=== PATIENT | male | born 1950 | race Caucasian/White ===

== ENCOUNTER → 2018-04-24 | Outpatient (CLI) | payer MEDICARE, OTHER ==
[~2018-04-24] MED LIST: ASPI81CH; Calcium Magnes1 EAC1; Calcium Magnes1 EACH; ERGO400; LOSA25; TAMS.4ER PO
== END | disposition home or self-care (01) ==
LOC: LAB EV 12:13 → LAB SHORT 12:13
DX: N41.9 Inflammatory disease of prostate, unspecified (principal)
CPT/HCPCS: 87077; 87086; 87186

== ENCOUNTER 2018-10-21 14:26 | Emergency (ER) | payer MEDICARE, OTHER ==
[~2018-10-21] VITALS: Ht 182.9 cm; Wt 108.9 kg
[2018-10-21 15:05] LABS: BASOPHILS ABSOLUTE AUTO 0.02 K/mm3 (0.00-0.23); BASOPHILS PERCENT AUTO 0 % (0-2); EOSINOPHILS PERCENT AUTO 3 % (0-6); IMMATURE GRAN ABSOLUTE AUTO 0.04 K/mm3 (0.00-0.10); IMMATURE GRAN PERCENT AUTO 1 % (0-1); LYMPHOCYTES ABSOLUTE AUTO 0.65 K/mm3 (0.84-5.20); LYMPHOCYTES PERCENT AUTO 7 % (21-46); MONOCYTES ABSOLUTE AUTO 0.24 K/mm3 (0.16-1.47); MONOCYTES PERCENT AUTO 3 % (4-13); Mean Corpuscular HGB 31.6 pg (26.0-34.0); Mean Corpuscular HGB Conc 34.8 g/dL (31.5-36.5); Mean Corpuscular Volume 91 fL (80-100); Mean Platelet Volume 10.5 fL (9.1-12.4); NEUTROPHILS ABSOLUTE AUTO 7.54 K/mm3 (1.96-9.15); NEUTROPHILS PERCENT AUTO 86 % (41-73); Platelet Count 119 K/mm3 (150-400); RDW Coefficient Variation 12.3 % (11.7-14.2); RDW Standard Deviation 41.2 fL (35.1-46.3); Red Blood Cell Count 5.06 M/mm3 (4.30-5.90); White Blood Cell Count 8.79 K/mm3 (4.00-11.30)
[2018-10-21] MEDS ORDERED: CETI5 PO (15:16)
[2018-10-21] MEDS ORDERED: Fish Oil Conc1000 MG PO (15:16)
[2018-10-21] MEDS ORDERED: NITR100CA PO (15:17)
[2018-10-21] MEDS ORDERED: ASPI81CH PO (15:17)
[2018-10-21 15:18] LABS: International Normalized Ratio 1.19; Prothrombin Time Results 12.4 Sec (9.7-11.5)
[2018-10-21 15:23] LABS: Albumin, Blood 2.9 g/dL (3.4-5.0); Albumin/Globulin Ratio 0.8 (0.8-1.8); Bilirubin, Total 0.6 mg/dL (0.1-1.0); Bun/Creatinine Ratio 12.6 (12.0-20.0); Calcium, Blood 8.6 mg/dL (8.5-10.1); Creatinine, Blood 1.82 mg/dL (0.60-1.20); Globulin, Blood 3.7 g/dL (2.2-4.0); Potassium, Blood 3.9 mmol/L (3.5-5.5); Total Protein, Blood 6.6 g/dL (6.4-8.2)
[2018-10-21 15:48] LABS: Source, Urine Catheter
[2018-10-21 15:54] LABS: Bilirubin, Urine Neg (Neg); Blood, Urine 4+ (Neg); Glucose Qualitative, Urine Neg (Neg); Ketones, Urine Neg (Neg); Leukocyte Esterase, Urine 1+ (Neg); Nitrite, Urine Neg (Neg); Protein, Urine 2+ (Neg); Urobilinogen, Urine NORM (Normal)
[2018-10-21 16:08] LABS: Appearance, Urine Hazy (Clear); Color, Urine Yellow (P-Yellow)
[2018-10-21 16:17] LABS: Bacteria Mod /hpf; Mucus Light (0-Heavy); Squamous Epithelial Cells Mod /hpf (Few)
[2018-10-21] MEDS ORDERED: Cipro500 MG PO (16:37)
[2019-01-29] MEDS ORDERED: TAMS.4ER PO (08:42)
[2019-01-29] MEDS ORDERED: Aspirin EC81 MG PO (08:42)
[2019-01-29] MEDS ORDERED: LOSA25 PO (08:42)
== END 2018-10-21 17:42 | disposition home or self-care (01) ==
LOC: ER 14:26
PROVIDERS: Physician Assistant
DX: L27.1 Localized skin eruption due to drugs and medicaments taken internally (principal); T37.8X5A Adverse effect of other specified systemic anti-infectives and antiparasitics, initial encounter; N39.0 Urinary tract infection, site not specified; I12.9 Hypertensive chronic kidney disease with stage 1 through stage 4 chronic kidney disease, or unspecified chronic kidney disease; N18.3 Chronic kidney disease, stage 3 (moderate); L40.9 Psoriasis, unspecified
CPT/HCPCS: 36415; 71046; 80053; 81001; 83605; 85025; 85610; 85730; 87040; 87077; 87086; 87186; 93005; 93010; 96360; 99284-25; J7030

== ENCOUNTER 2019-02-01 06:37 | Day surgery (SDC) | payer MEDICARE, OTHER ==
[~2019-02-01] VITALS: Ht 182.9 cm; Wt 105.4 kg
[~2019-02-01 06:37] MED LIST changes: +ASPI81CH PO; +Aspirin EC81 MG PO; +CETI5 PO; +Cipro500 MG PO; +Fish Oil Conc1000 MG PO; +LOSA25 PO; +NITR100CA PO
== END 2019-02-01 09:29 | disposition home or self-care (01) ==
LOC: ORSCSDS 06:37
PROVIDERS: Internal Medicine Gastroenterology
PROC: 0DBN8ZX Excision of Sigmoid Colon, Via Natural or Artificial Opening Endoscopic, Diagnostic (ICD-10-PCS; principal; 2019-02-01 08:00)
PROC: 0DBL8ZX Excision of Transverse Colon, Via Natural or Artificial Opening Endoscopic, Diagnostic (ICD-10-PCS; principal; 2019-02-01 08:00)
PROC: 0DBK8ZX Excision of Ascending Colon, Via Natural or Artificial Opening Endoscopic, Diagnostic (ICD-10-PCS; principal; 2019-02-01 08:00)
DX: Z12.11 Encounter for screening for malignant neoplasm of colon (principal); K63.5 Polyp of colon; K57.30 Diverticulosis of large intestine without perforation or abscess without bleeding; K64.8 Other hemorrhoids; Z86.010 Personal history of colon polyps; N18.3 Chronic kidney disease, stage 3 (moderate); N40.0 Benign prostatic hyperplasia without lower urinary tract symptoms; E78.5 Hyperlipidemia, unspecified; Z79.899 Other long term (current) drug therapy
CPT/HCPCS: 88305; J0330; J0461; J2250; J2405; J2704; J7120

== ENCOUNTER 2020-02-19 11:08 | Day surgery (SDC) | payer MEDICARE ==
[~2020-02-19] VITALS: Ht 182.9 cm; Wt 109.0 kg
[2020-02-19] MEDS ORDERED: ATOR20 PO (11:37)
== END 2020-02-19 14:05 | disposition home or self-care (01) ==
LOC: ORSCSDS 11:08
PROVIDERS: Internal Medicine Gastroenterology
PROC: 0DJD8ZZ Inspection of Lower Intestinal Tract, Via Natural or Artificial Opening Endoscopic (ICD-10-PCS; principal; 2020-02-19 12:30)
DX: Z86.010 Personal history of colon polyps (principal); K57.30 Diverticulosis of large intestine without perforation or abscess without bleeding; K64.8 Other hemorrhoids; E78.5 Hyperlipidemia, unspecified; N18.30 Chronic kidney disease, stage 3 unspecified; K21.9 Gastro-esophageal reflux disease without esophagitis; Z79.899 Other long term (current) drug therapy; Z79.82 Long term (current) use of aspirin
CPT/HCPCS: J2250; J2704; J7120

== ENCOUNTER → 2021-12-11 | Outpatient (CLI) | payer OTHER | END | disposition home or self-care (01) | LOC: LAB 12:31 | DX: N39.0 Urinary tract infection, site not specified (principal) ==

== ENCOUNTER → 2022-01-06 | Outpatient (CLI) | payer OTHER ==
[~2022-01-06] MED LIST changes: +ATOR20 PO
[2022-01-06 11:01] LABS: Source, Urine Clean Catch
[2022-01-06 13:22] LABS: Appearance, Urine Hazy (Clear); Bilirubin, Urine Neg (Neg); Blood, Urine 4+ (Neg); Color, Urine Yellow (P-Yellow); Glucose Qualitative, Urine Neg (Neg); Ketones, Urine Neg (Neg); Leukocyte Esterase, Urine 3+ (Neg); Nitrite, Urine Neg (Neg); Protein, Urine 1+ (Neg); Urobilinogen, Urine NORM (Normal)
[2022-01-06 13:59] LABS: Bacteria Many /hpf; Squamous Epithelial Cells Few /hpf (Few); White Blood Cells, Urine 25-50 /hpf (0-5)
== END | disposition home or self-care (01) ==
LOC: LAB SHORT 10:58 → LAB 10:58
PROVIDERS: Urology
DX: N39.0 Urinary tract infection, site not specified (principal)
CPT/HCPCS: 81001; 87077; 87086; 87186

== ENCOUNTER → 2022-02-09 | Outpatient (CLI) | payer OTHER | END | disposition home or self-care (01) | LOC: LAB 11:42 → LAB SHORT 11:42 | DX: L82.1 Other seborrheic keratosis (principal) | CPT/HCPCS: 88305 ==

== ENCOUNTER → 2022-02-12 | Outpatient (CLI) | payer OTHER ==
[2022-02-12 16:17] LABS: Source, Urine Clean Catch
[2022-02-12 19:04] LABS: Appearance, Urine Cloudy (Clear); Bilirubin, Urine Neg (Neg); Blood, Urine 2+ (Neg); Color, Urine Amber (P-Yellow); Glucose Qualitative, Urine Neg (Neg); Ketones, Urine Neg (Neg); Leukocyte Esterase, Urine 3+ (Neg); Nitrite, Urine Neg (Neg); Protein, Urine 1+ (Neg); Specific Gravity, Urine 1.015 (1.003-1.022); Urobilinogen, Urine NORM (Normal)
[2022-02-12 19:12] LABS: Bacteria Many /hpf; Squamous Epithelial Cells Rare /hpf (Few)
== END | disposition home or self-care (01) ==
LOC: LAB SHORT 16:15 → LAB 16:15 → LAB FUT 02-12 16:15
PROVIDERS: Urology
DX: N39.0 Urinary tract infection, site not specified (principal)
CPT/HCPCS: 81001; 87077; 87086; 87186

== ENCOUNTER 2022-03-10 12:00 | Day surgery (SDC) | payer OTHER ==
[~2022-03-10] VITALS: Ht 185.4 cm; Wt 116.1 kg
== END 2022-03-10 15:16 | disposition home or self-care (01) ==
LOC: ORSCSDS 12:00
PROVIDERS: Internal Medicine Gastroenterology
PROC: 0DJD8ZZ Inspection of Lower Intestinal Tract, Via Natural or Artificial Opening Endoscopic (ICD-10-PCS; principal; 2022-03-10 13:15)
DX: K63.5 Polyp of colon (principal); K57.30 Diverticulosis of large intestine without perforation or abscess without bleeding; K64.8 Other hemorrhoids; I10 Essential (primary) hypertension; K21.9 Gastro-esophageal reflux disease without esophagitis; Z79.899 Other long term (current) drug therapy; Z79.82 Long term (current) use of aspirin
CPT/HCPCS: J0330; J0461; J2405; J2704; J7120; Q9968

== ENCOUNTER → 2022-09-24 | Outpatient (CLI) | payer OTHER ==
[2022-09-28 11:11] LABS: M-SPIKE, % Not Observed % (Not Observed); PROTEIN,TOTAL,URINE 11.2 mg/dL (Not Estab.)
== END | disposition home or self-care (01) ==
LOC: LAB SHORT 03:55 → LAB 03:55 → LAB FUT 09-21 13:15
PROVIDERS: Internal Medicine
DX: R79.89 Other specified abnormal findings of blood chemistry (principal)
CPT/HCPCS: 81050; 84156; 84166

== ENCOUNTER 2024-04-05 13:09 | Day surgery (SDC) | payer OTHER ==
[~2024-04-05 13:09] MED LIST changes: +Atropine Sulfate 0.1 MG/ML 10ML SYR ONE; +Glycopyrrolate 0.2 MG/ML 1MLVIAL ONE; +Lactated Ringer's 1,000 ML IV ONE; +Lidocaine 2% 5 ML SDV ONE; +Lidocaine HCl/Pf 1% 5 ML VIAL ONE; +Methylene Blue 1% 100 MG/10 ML VIAL ONE; +Ondansetron HCl 2 MG / ML 2ML Vial ONE; +ePHEDrine Sulfate 50 MG/ML 1ML Injection ONE; +propofoL 50 ML IV ONE
[2024-04-05] MEDS ORDERED: METHENAM HIP (13:47)
[2024-04-05] MEDS ORDERED: Lactated Ringer's 1,000 ML IV ONE (14:06)
[2024-04-05] MEDS ORDERED: propofoL 50 ML IV ONE ×2 (14:16)
[2024-04-05] MEDS ORDERED: Midazolam HCL 1 MG/ML 5MLVIAL ONE (14:36)
[2024-04-05 15:48] VITALS: BP 130/77
== END 2024-04-05 15:49 | disposition home or self-care (01) ==
LOC: ORSCSDS 13:09
DX: Z12.11 Encounter for screening for malignant neoplasm of colon (principal); Z86.0101 Personal history of adenomatous and serrated colon polyps; D12.2 Benign neoplasm of ascending colon; D12.5 Benign neoplasm of sigmoid colon; K63.5 Polyp of colon; K57.30 Diverticulosis of large intestine without perforation or abscess without bleeding; K64.8 Other hemorrhoids; N18.30 Chronic kidney disease, stage 3 unspecified; I10 Essential (primary) hypertension; N40.0 Benign prostatic hyperplasia without lower urinary tract symptoms; Z79.899 Other long term (current) drug therapy; Z79.82 Long term (current) use of aspirin; F17.220 Nicotine dependence, chewing tobacco, uncomplicated
CPT/HCPCS: 88305; J0461; J2003; J2250; J2405; J2704; J7120; Q9968

== ENCOUNTER → 2024-06-07 | Outpatient (CLI) | payer OTHER ==
[~2024-06-07] MED LIST changes: -Atropine Sulfate 0.1 MG/ML 10ML SYR ONE; -Glycopyrrolate 0.2 MG/ML 1MLVIAL ONE; -Lactated Ringer's 1,000 ML IV ONE; -Lidocaine 2% 5 ML SDV ONE; -Lidocaine HCl/Pf 1% 5 ML VIAL ONE; +METHENAM HIP; -Methylene Blue 1% 100 MG/10 ML VIAL ONE; -Ondansetron HCl 2 MG / ML 2ML Vial ONE; -ePHEDrine Sulfate 50 MG/ML 1ML Injection ONE; -propofoL 50 ML IV ONE
[2024-06-07 14:22] LABS: Source, Urine Clean Catch
[2024-06-07 16:35] LABS: Appearance, Urine Hazy (Clear); Bilirubin, Urine Neg (Neg); Blood, Urine 2+ (Neg); Color, Urine Yellow (P-Yellow); Glucose Qualitative, Urine Neg (Neg); Ketones, Urine Neg (Neg); Leukocyte Esterase, Urine 2+ (Neg); Nitrite, Urine Neg (Neg); Protein, Urine Neg (Neg); Urobilinogen, Urine NORM (Normal)
[2024-06-07 17:21] LABS: Red Blood Cells, Urine 0-2 /hpf (0-2); White Blood Cells, Urine 25-50 /hpf (0-5)
[2024-06-07 17:22] LABS: Bacteria Many /hpf; Squamous Epithelial Cells Not Seen /hpf (Few)
== END ==
LOC: LAB SHORT 14:21 → LAB 14:21 → LAB FUT 06-07 12:20
PROVIDERS: Physician Assistant
DX: R31.0 Gross hematuria (principal); Z87.440 Personal history of urinary (tract) infections
CPT/HCPCS: 81001; 87077; 87086; 87186